=== PATIENT | male | born 1985 | race Caucasian/White ===

== ENCOUNTER 2016-12-22 22:01 | Emergency (ER) | payer OTHER ==
[~2016-12-22] VITALS: Ht 182.9 cm; Wt 92.9 kg
[~2016-12-22 22:01] MED LIST: AMT50 PO; GABA-113 PO; IBUP-103 PO
[2016-12-22 22:03] VITALS: Ht 182.9 cm; Wt 92.9 kg
[2016-12-22] MEDS ORDERED: PROPARACAINE HCL 0.5% OP SOLN 15 ML BTL ONE (22:25)
[2016-12-22] MEDS ORDERED: ACETAMINOPHEN 500 MG TAB PO STA (22:33)
--- NOTE | 2016-12-22 22:42 | EMERGENCY ROOM VISIT NOTE ---
History First contact with patient: 22:19 Chief Complaint: EYE ASSESSMENT Stated Complaint: PATIENT GOT HIT RT EYE, CAN'T SEE, PUPIL NO REACT History of Present Illness The patient is a 31 year old male who presents to the Emergency Room with complaints of an injury to the right eye. The patient states that he was playing basketball and someone's fingers struck him in the right eye. He reports redness and watering of the eye. He states that his vision is blurred and darker than normal. He reports pain in the eye which is worse when he closes the eye or looks at light. He rates his discomfort an 8/10. He does not wear glasses or contacts. He denies any other injuries. Review of Systems A complete 10 point review of systems was reviewed with the patient with pertinent positives and negatives as per history of present illness. All else were negative. Past Medical/Surgical History Medical Problems: (1) Asthma (2) Back pain (3) Back surgery (4) Boxer's fracture (5) Chronic pain (6) Contusion of arm, right, multiple sites (7) Depression (8) Encounter for wound re-check (9) Encounter for wound re-check (10) Fall (11) Fall down stairs (12) Fall due to ice or snow (13) Foot pain (14) Injury of right lower leg (15) Lower back pain (16) Pain (17) Right hand pain Family History FH: cancer Social History Smoking Status: Current Every Day Smoker Alcohol Use: heavy Drug Use: none Marital Status: in relationship Housing Status: lives alone Occupation Status: unemployed Current/Historical Medications Scheduled PRN Ibuprofen Tab (Advil), 400 MG PO BID PRN for Pain Physical Exam Vital Signs Date Time Temp Pulse Resp B/P (MAP) Pulse Ox O2 Delivery O2 Flow Rate FiO2 12/22/16 22:48 36.5 5 16 118/83 98 12/22/16 22:03 36.5 51 18 129/71 97 Room Air Right Eye Acuity: 20/60 Left Eye Acuity: 20/15 Physical Exam VITALS: Vitals are noted on the nurse's note and reviewed by myself. Vital signs stable. GENERAL: This is a 31-year-old male, in no acute distress, nondiaphoretic, well- developed well-nourished. EARS: External auditory canals clear, tympanic membranes pearly rosa without erythema or effusion bilaterally. EYES: Visual acuity as noted above. There is conjunctival injection and discharge of clear tears from the right eye. No hyphema. PERRLA. EOMs intact. Examination after fluorescein staining reveals uptake consistent with corneal abrasion over the right cornea at approximately 10:00. NEURO: Patient was alert and oriented to person place and time. Medical Decision & Procedures Medications Administered Medications (Trade) Dose Ordered Sig/Naya Route Start Time Stop Time Status Last Admin Dose Admin Acetaminophen (Tylenol Tab) 1,000 mg NOW STAT PO 12/22/16 22:33 12/22/16 22:35 DC 12/22/16 22:42 1,000 MG Ciprofloxacin HCl (Ciprofloxacin 0.3% Op Soln) 2 drops Q4H ONCE OP 12/22/16 22:45 12/22/16 22:46 DC 12/22/16 22:42 2 DROPS Medical Decision Differential diagnosis includes corneal abrasion, hyphema, globe injury, among others. The patient is a 31-year-old male who presents today complaining of right eye discomfort after an injury. Exam is consistent with a corneal abrasion. He was placed on Ciloxan drops and instructed to follow-up with ophthalmology if symptoms persist or worsen. He was given Tylenol for pain. He verbalized understanding of my assessment and treatment plan and was discharged home in good condition. Medication Reconcilliation Current Medication List: was personally reviewed by me Blood Pressure Screening Patient's blood pressure: Normal blood pressure Impression Primary Impression: Right corneal abrasion Departure Information Dispostion Home / Self-Care Condition GOOD Referrals [facility] (PCP) Patient Instructions My [facility] Additional Instructions You have been treated in the Emergency Department today for your Corneal Abrasion. You have been prescribed Ciloxan eye drops. This is an antibiotic which will help to prevent an infection from developing in your affected eye. You should use 2 drops in the affected eye 6 times daily while awake for the next 5-7 days or until symptoms have completely resolved. For pain control, you can use the following [id number]-[id number] medicines (if >12 yo): - Regular strength (325mg/tab) Tylenol (acetaminophen) 2 tabs every 4-6 hours as needed. Do not exceed 12 tablets in a 24 hour period. Avoid taking more than 4 grams (4000 mg) of Tylenol per day. This includes any other sources of acetaminophen you may take on a regular basis. - Regular strength (200 mg/tab) Advil (ibuprofen) 1-2 tabs every 4-6 hours as needed. Do not exceed a dose of 3200 mg per day. You should relax in a quiet, dark place for the rest of the day. You should wear sunglasses while outside for the next few days until your eyes are not as sensitive to the light. If there are any persistent symptoms or worsening vision changes, you will need to follow up with an speech pathologist assistant or die maker trim for evaluation. Return to the Emergency Department if your current symptoms worsen despite treatment course outlined above, or if you develop any of the following symptoms : intractable pain, visual disturbances, loss of vision, increased redness, swelling, drainage, or if you develop a fever. Problem Qualifiers Primary Impression: Right corneal abrasion Encounter type: initial encounter Qualified Codes: S05.01XA - Injury of conjunctiva and corneal abrasion without foreign body, right eye, initial encounter
[2016-12-22] MEDS ORDERED: CIPROFLOXACIN HCL 0.3% OP SOLN 2.5 ML BTL OP ONE (22:45)
[2016-12-22 22:48] VITALS: BP 118/83; PULSE 5; TEMP 36.5; O2SAT 98
== END 2016-12-22 22:50 | disposition home or self-care (01) ==
LOC: C.EDB 22:03 → C.EDA 22:50
DX: S05.01XA Injury of conjunctiva and corneal abrasion without foreign body, right eye, initial encounter (principal); W50.0XXA Accidental hit or strike by another person, initial encounter; J45.909 Unspecified asthma, uncomplicated; F32.9 Major depressive disorder, single episode, unspecified; F17.200 Nicotine dependence, unspecified, uncomplicated